=== PATIENT | male | born 1945 | race Caucasian/White ===

== ENCOUNTER 2017-11-08 18:54 | Emergency (ER) | payer MEDICARE, BC, OTHER ==
[2017-11-08] MEDS ORDERED: Ibuprofen 800 MG TAB ONE (19:18)
== END 2017-11-08 20:12 | disposition left against medical advice (07) ==
LOC: ERS 18:54
DX: Z53.21 Procedure and treatment not carried out due to patient leaving prior to being seen by health care provider (principal)
CPT/HCPCS: 93005

== ENCOUNTER 2017-11-09 10:20 | Emergency (ER) | payer MEDICARE, BC ==
[2017-11-09] MEDS ORDERED: Acetaminophen 500 MG TAB ONE (11:12)
--- NOTE | 2017-11-09 12:13 | RAD ---
PORTABLE CHEST 1 VIEW: DATE: 11/09/17. TIME: 11:37 a.m. HISTORY: Cough. FINDINGS: The heart size is prominent. The lungs are expanded without focal areas of consolidation, pneumothor ax, shelbi pulmonary edema, or pleural effusions. There are degenerative changes in the spine. IMPRESSION: Cardiomegaly. POS: JEROD
[2017-11-09 13:22] LABS: Hemoglobin 14.8 g/dL (14.0-18.0); Mean Corpuscular HGB CONC 33.4 g/dL (32.0-36.0); Mean Corpuscular Hemoglobin 31.7 pg (27.0-31.0); Platelet Count 42 thou/uL (130-400); RBC Distribution Width 11.9 % (11.5-14.5); Red Blood Cell (RBC) Count 4.66 mill/uL (4.70-6.10); White Blood Cell (WBC) Count 5.6 thou/uL (4.8-10.8)
[2017-11-09 13:29] LABS: Anion Gap 14 mmol/L (10-20); BUN (Urea Nitrogen) 36 mg/dL (8.4-25.7); Calc. Creatinine Clearance 0 mL/min (70-130); Calcium 8.8 mg/dL (7.8-10.44); Carbon Dioxide 19 mmol/L (23-31); Chloride 102 mmol/L (98-107); Estimated GFR-MDRD 50; Glucose 130 mg/dL (80-115); Potassium 4.1 mmol/L (3.5-5.1); Sodium 131 mmol/L (136-145)
[2017-11-09 13:33] LABS: CKMB 2.8 ng/mL (0-6.6); Troponin I 0.016 ng/mL (< 0.028)
[2017-11-09 13:41] LABS: Band 28 % (5-11); Dohle Bodies SLIGHT; Lymphocytes 6 % (21-51); MDiff Complete? YES; Monocytes 13 % (0-10); Neutrophil 46 % (42-75); PLT Morphology Comment Appears Decreased; RBC Morphology Normal; Reactive Lymphocytes 7 % (0-10); Toxic Granulation SLIGHT; Vacuoles SLIGHT
--- NOTE | 2017-11-14 15:33 | EKG ---
Test Reason : Blood Pressure : / mmHG Vent. Rate : 093 BPM Atrial Rate : 093 BPM P-R Int : 156 ms QRS Dur : 094 ms QT Int : 358 ms P-R-T Axes : 027 005 036 degrees QTc Int : 445 ms Normal sinus rhythm Normal ECG Confirmed by GERRY BETHEA ([id number]), book editor SHEILA FARIA ([id number]) on 11/14/2017 3:33:05 PM Referred By: Confirmed By:GERRY BETHEA
== END 2017-11-09 13:19 | disposition home or self-care (01) ==
LOC: ERS 10:20
DX: J11.1 Influenza due to unidentified influenza virus with other respiratory manifestations (principal); I10 Essential (primary) hypertension; E78.5 Hyperlipidemia, unspecified
CPT/HCPCS: 36415; 71045; 80048; 82553; 84484; 85025; 87804; 93005; 96360

== ENCOUNTER 2019-06-03 15:24 | Inpatient (IN) | payer MEDICARE, BC ==
[2019-06-03 18:06] VITALS: BMI 41.0
[2019-06-03] MEDS ORDERED: diphenhydrAMINE 25 MG CAP PO SCH (19:00)
[2019-06-03] MEDS ORDERED: Acetaminophen 500 MG TAB PO SCH (19:00)
[2019-06-03] MEDS ORDERED: Prevnar 13-Val Conj/PF 0.5 ML SYRINGE IM ONE (20:00)
[2019-06-03] MEDS ORDERED: Acetaminophen 325 MG TAB PO PRN (20:47)
[2019-06-03] MEDS ORDERED: Ondansetron PF 4 MG/2 ML Vial IVP PRN (20:47)
[2019-06-03] MEDS ORDERED: Ondansetron ODT 4 MG TAB PO PRN (20:47)
[2019-06-03] MEDS ORDERED: Dexamethasone 4 MG TAB PO SCH (21:15)
[2019-06-03] MEDS ORDERED: OCTAGAM IVPB SCH (21:30)
[2019-06-03] MEDS ORDERED: ADMIXTURE FEE IVPB SCH (21:30)
--- NOTE | 2019-06-04 02:53 | PDOC.FPRHP ---
- History of Present Illness Chief Complaint: Direct admit from [facility] for ITP History of Present Illness: 74 year old male with PMH HTN, HLD, Pre-diabetes presents from Dr. Donald's office due to low platelets. Platelets in the office were 2000. Patient reports that he started seeing Dr. Donald approximately 1 year ago when his platelets were first noted to be low. He claims that his history of H1N1 in 11/2017 contributed to the low platelets. He has also been on celebrex for his arthritis. He states that it is the only medication that works[place] [address] [place] he was sent to Dr. Donald. [place] [address] [place] any interventions. Patient desired to be back on celebrex for arthritis pain, so Dr. Donald agreed to let him start back on it with the understanding that if he developed any petechiae, the patient needed to notify Dr. Donald immediately. Patient states that he started back on the Celebrex 10 days ago. At appx 8:30 this morning, he noted petechiae on his left antecubital region. The petetchiae are now on both arms and legs. He called Dr. Donald's office and got an appt for today at which point his platelets were checked and noted to be severely low as indicated above. Dr. Donald requested patient be given IVIG 90 grams immediately after the first unit of platelets, followed by 2nd unit of platelets. Dexamethasone 40 mg PO qd x4 doses also to be given. CBC to be checked 3 hours after last transfusion, and then again 6 hours after that. If platelets drop back down, patient will stay in hospital for further management. - Allergies/Adverse Reactions Allergies Allergy/AdvReac Type Severity Reaction Status Date / Time acetaminophen [From Vicodin] Allergy Verified 06/03/19 18:43 hydrocodone [From Vicodin] Allergy Verified 06/03/19 18:43 - Home Medications Medication Instructions Recorded Confirmed Type Celecoxib 200 mg PO DAILY 06/03/19 06/03/19 History Lisinopril 5 mg PO DAILY 06/03/19 06/03/19 History Simvastatin [Zocor] 40 mg PO DAILY 06/03/19 06/03/19 History - History PMHx: HTN, HLD, Pre-diabetes, Hx H1N1, OA PSHx: Cholecystectomy FHx: No family history significant for bleeding disorders, maternal history of vascular dementia, sister with low ferritin Social: Patient denies tobacco or drug use. Patient endorses drinking years ago when he was in the [place]. - Review of Systems General: denies: fever/chills Eyes: denies: vision changes ENT: denies: nasal congestion, rhinorrhea Respiratory: denies: cough, congestion, shortness of breath Cardiovascular: denies: chest pain, palpitation, edema Gastrointestinal: denies: nausea, vomiting, diarrhea, abdominal pain Genitourinary: denies: dysuria Skin: reports: rashes, other (Petechiae) Musculoskeletal: denies: pain, tenderness Neurological: denies: numbness, syncope Psychological: denies: anxiety, depression - Vital signs BP: 112/58 HR: 74 RR: 16 Tmax: 98.2F Pox: 94% on RA Wt: 118.8 kg - Physical Exam Constitutional: NAD, awake, alert and oriented HEENT: EOMI, grossly normal vision, grossly normal hearing Heart: RRR, normal S1/S2 Lungs: CTAB, no respiratory distress Abdomen: soft, non-tender Musculoskeletal: normal structure, ROM grossly normal Neurological: no focal deficit Skin: capillary refill <2 seconds -Heme/Lymphatic: Petechiae present on right and left arms and bilateral LE's to level of mid calf Psychiatric: normal mood and affect FMR H&P: Results - Labs Result Diagrams: 06/04/19 11:38 FMR H&P: A/P - Problem List (1) Idiopathic thrombocytopenic purpura (ITP) Current Visit: Yes Status: Acute Code(s): D69.3 - IMMUNE THROMBOCYTOPENIC PURPURA (2) HLD (hyperlipidemia) Current Visit: Yes Status: Acute Code(s): E78.5 - HYPERLIPIDEMIA, UNSPECIFIED (3) HTN (hypertension) Current Visit: Yes Status: Acute Code(s): I10 - ESSENTIAL (PRIMARY) HYPERTENSION (4) Prediabetes Current Visit: Yes Status: Acute Code(s): R73.03 - PREDIABETES - Plan Thrombocytopenia likely 2/2 ITP - Direct admit from Dr. Donald's office - Celebrex stopped this AM (likely contributing factor as this has happened previously) - 90 g IVIG immediately after first unit of platelets, followed by 2nd unit of platelets - Dexamethasone 40 mg PO qd .4 days - CBC 3 hours after last transfusion, and platelets 6 hours after that - If platelets drop back down, patient to remain in hospital for further management - If platelets stable, then patient can be d/c'd tomorrow evening HTN - Continue home lisinopril HLD - Continue home medications OA - Tylenol as needed - Hold celebrex given ITP DVT PPX: Frequent ambulation Code status: Full Dispo: Admit to Oncology (on pediatrics for overflow purposes). Disposition/LOS: Leanne Croft, PGY-3 FMR H&P: Upper Level - Plan Date/Time: 06/04/19 [id number] I, [], have evaluated this patient and agree with findings/plan as outlined by administration intern resident. Pertinent changes/additions are listed here. Addendum - Attending - Attending Attestation Date/Time: 06/04/19 [id number] I personally evaluated the patient and discussed the management with Dr. Croft. I agree with the History, Examination, Assessment and Plan documented above with any addition or exceptions noted below. The patient was sent from Dr. Donald's office for admission for severe thrombocytopenia. This is thought to be from ITP from celebrex use. Pt noticed petechia after restarting celebrex about a week prior. He has received IVIG, Platelets and steroids. Will check CBC and then recheck CBC 6 hours later to see if platelet level is stable.
[2019-06-04] MEDS ORDERED: Atorvastatin Calcium 20 MG TAB PO SCH (09:00)
[2019-06-04] MEDS ORDERED: Lisinopril 5 MG TAB PO SCH (09:00)
[2019-06-04 11:51] LABS: #Lymphocytes 0.8 thou/uL (1.20-3.40); #Monocytes 0.1 thou/uL (0.11-0.59); #Neutrophils 4.7 thou/uL (1.40-6.50); %Basophils 0.4 % (0.0-1.0); %Eosinophils 0.2 % (0.0-10.0); %Lymphocytes 14.3 % (21.0-51.0); %Monocytes 2.1 % (0.0-10.0); Hemoglobin 14.2 g/dL (14.0-18.0); Mean Corpuscular HGB CONC 35.7 g/dL (32.0-36.0); Mean Corpuscular Hemoglobin 32.6 pg (27.0-31.0); Mean Corpuscular Volume 91.2 fL (78.0-98.0); Mean Platelet Volume 8.6 fL (7.4-10.4); Platelet Count 50 thou/uL (130-400); Red Blood Cell (RBC) Count 4.37 mill/uL (4.70-6.10); White Blood Cell (WBC) Count 5.6 thou/uL (4.8-10.8)
[2019-06-04 16:49] VITALS: BP 123/62; TEMP 98.4
[2019-06-04 18:07] LABS: #Monocytes 0.5 thou/uL (0.11-0.59); #Neutrophils 6.8 thou/uL (1.40-6.50); %Basophils 0.3 % (0.0-1.0); %Eosinophils 0.1 % (0.0-10.0); %Lymphocytes 11.6 % (21.0-51.0); %Neutrophils 82.1 % (42.0-75.0); Hemoglobin 14.2 g/dL (14.0-18.0); Mean Corpuscular HGB CONC 35.5 g/dL (32.0-36.0); Mean Corpuscular Hemoglobin 32.6 pg (27.0-31.0); Mean Corpuscular Volume 91.7 fL (78.0-98.0); Mean Platelet Volume 9.2 fL (7.4-10.4); Platelet Count 48 thou/uL (130-400); Red Blood Cell (RBC) Count 4.37 mill/uL (4.70-6.10); White Blood Cell (WBC) Count 8.3 thou/uL (4.8-10.8)
== END 2019-06-04 18:36 | disposition home or self-care (01) | DRG 813 ==
LOC: OBSVTOIN 17:34 → 3SE 17:34 → INTOOBSV 17:34
PROVIDERS: ADMIT Family Medicine; ATTEND Family Medicine
PROC: 30233R1 Transfusion of Nonautologous Platelets into Peripheral Vein, Percutaneous Approach (ICD-10-PCS; principal; 2019-06-03)
PROC: 3E0234Z Introduction of Serum, Toxoid and Vaccine into Muscle, Percutaneous Approach (ICD-10-PCS; 2019-06-03)
DX: D69.3 Immune thrombocytopenic purpura (principal); I10 Essential (primary) hypertension; E78.5 Hyperlipidemia, unspecified; M19.90 Unspecified osteoarthritis, unspecified site; R73.03 Prediabetes; Z88.8 Allergy status to other drugs, medicaments and biological substances; Z90.49 Acquired absence of other specified parts of digestive tract; Z23 Encounter for immunization
CPT/HCPCS: 36415; 36416; 36430; 85025; 86850; 86860; 86870; 86880; 86900; 86901; 86905; 86970; 86978; 90471; 90670; G0009; J1568; J8540; P9035; Q0163

== ENCOUNTER 2022-12-14 18:17 | Observation (INO) | payer MEDICARE, BC ==
[2022-12-14 19:51] LABS: #Lymphocytes 1.3 thou/uL (1.20-3.40); #Monocytes 1.1 thou/uL (0.11-0.59); #Neutrophils 6.7 thou/uL (1.40-6.50); %Basophils 0.2 % (0.0-1.0); %Eosinophils 0.4 % (0.0-10.0); %Lymphocytes 13.8 % (21.0-51.0); %Neutrophils 73.6 % (42.0-75.0); Hemoglobin 15.8 g/dL (14.0-18.0); Mean Corpuscular HGB CONC 35.3 g/dL (32.0-36.0); Mean Corpuscular Hemoglobin 32.6 pg (27.0-31.0); Mean Corpuscular Volume 92.3 fl (78.0-98.0); Mean Platelet Volume 8.5 fL (7.4-10.4); Platelet Count 61 10x3/uL (130-400); RBC Distribution Width 11.7 % (11.5-14.5); Red Blood Cell (RBC) Count 4.83 mill/uL (4.70-6.10); White Blood Cell (WBC) Count 9.1 10x3/uL (4.8-10.8)
[2022-12-14] MEDS ORDERED: Dicyclomine 20 MG TAB ONE (20:10)
[2022-12-14 20:11] LABS: ALT (SGPT) 27 U/L (8-55); AST (SGOT) 24 U/L (5-34); Albumin 4.1 g/dL (3.4-4.8); Alkaline Phosphatase 45 U/L (40-110); Anion Gap 15 mmol/L (10-20); BUN (Urea Nitrogen) 14 mg/dL (8.4-25.7); Bilirubin, Total 0.9 mg/dL (0.2-1.2); Calc. Creatinine Clearance 0 mL/min (70-130); Calcium 9.4 mg/dL (7.8-10.44); Carbon Dioxide 21 mmol/L (23-31); Chloride 98 mmol/L (98-107); Estimated GFR 87; Globulin 2.7 g/dL (2.4-3.5); Glucose 116 mg/dL (83-110); Lipase 17 U/L (8-78); Potassium 3.9 mmol/L (3.5-5.1); Protein, Total 6.8 g/dL (5.8-8.1); Sodium 130 mmol/L (136-145)
[2022-12-15] MEDS ORDERED: Ondansetron PF 4 MG/2 ML Vial ONE (01:49)
[2022-12-15] MEDS ORDERED: Ondansetron PF 4 MG/2 ML Vial IVP PRN (03:32)
[2022-12-15] MEDS ORDERED: Lactated Ringer's 1,000 ML IV SCH (05:00)
[2022-12-15 05:22] LABS: #Lymphocytes 1.1 thou/uL (1.20-3.40); #Monocytes 1.1 thou/uL (0.11-0.59); #Neutrophils 6.7 thou/uL (1.40-6.50); %Basophils 0.5 % (0.0-1.0); %Eosinophils 0.4 % (0.0-10.0); %Monocytes 12.6 % (0.0-10.0); %Neutrophils 74.4 % (42.0-75.0); Mean Corpuscular HGB CONC 34.9 g/dL (32.0-36.0); Mean Corpuscular Hemoglobin 32.8 pg (27.0-31.0); Mean Platelet Volume 8.3 fL (7.4-10.4); Platelet Count 65 10x3/uL (130-400); RBC Distribution Width 11.9 % (11.5-14.5); Red Blood Cell (RBC) Count 4.57 mill/uL (4.70-6.10); White Blood Cell (WBC) Count 8.9 10x3/uL (4.8-10.8)
[2022-12-15 05:30] LABS: Lactic Acid 1.5 mmol/L (0.5-2.2)
[2022-12-15 05:37] LABS: Anion Gap 14 mmol/L (10-20); BUN (Urea Nitrogen) 12 mg/dL (8.4-25.7); Calc. Creatinine Clearance 0 mL/min (70-130); Calcium 8.7 mg/dL (7.8-10.44); Carbon Dioxide 21 mmol/L (23-31); Chloride 105 mmol/L (98-107); Estimated GFR 91; Glucose 114 mg/dL (83-110); Potassium 3.8 mmol/L (3.5-5.1); Sodium 136 mmol/L (136-145)
[2022-12-15] MEDS ORDERED: Polyethylene Glycol 3350 17 GM Packet PO SCH (09:00)
[2022-12-15] MEDS: Lisinopril 5 MG TAB PO SCH (10:11)
[2022-12-15 15:36] VITALS: BMI 36.5
[2022-12-15] MEDS ORDERED: Atorvastatin Calcium 10 MG TAB PO SCH (21:00)
[2022-12-16 05:58] LABS: #Eosinphils 0.2 thou/uL (0.0-0.7); #Lymphocytes 1.4 thou/uL (1.20-3.40); #Monocytes 1.1 thou/uL (0.11-0.59); #Neutrophils 5.3 thou/uL (1.40-6.50); %Basophils 0.2 % (0.0-1.0); %Eosinophils 2.7 % (0.0-10.0); %Lymphocytes 17.9 % (21.0-51.0); %Monocytes 13.3 % (0.0-10.0); %Neutrophils 65.9 % (42.0-75.0); Hemoglobin 15.6 g/dL (14.0-18.0); Mean Corpuscular HGB CONC 33.9 g/dL (32.0-36.0); Mean Corpuscular Hemoglobin 32.2 pg (27.0-31.0); Mean Corpuscular Volume 94.9 fl (78.0-98.0); Mean Platelet Volume 8.3 fL (7.4-10.4); Platelet Count 74 10x3/uL (130-400); RBC Distribution Width 12.2 % (11.5-14.5); Red Blood Cell (RBC) Count 4.86 mill/uL (4.70-6.10)
[2022-12-16 06:22] LABS: ALT (SGPT) 23 U/L (8-55); AST (SGOT) 35 U/L (5-34); Albumin 4.2 g/dL (3.4-4.8); Alkaline Phosphatase 47 U/L (40-110); Anion Gap 13 mmol/L (10-20); BUN (Urea Nitrogen) 13 mg/dL (8.4-25.7); Bilirubin, Total 0.8 mg/dL (0.2-1.2); Calc. Creatinine Clearance 105 mL/min (70-130); Calcium 9.4 mg/dL (7.8-10.44); Carbon Dioxide 24 mmol/L (23-31); Chloride 105 mmol/L (98-107); Estimated GFR 85; Globulin 2.7 g/dL (2.4-3.5); Glucose 101 mg/dL (83-110); Potassium 3.7 mmol/L (3.5-5.1); Protein, Total 6.9 g/dL (5.8-8.1); Sodium 138 mmol/L (136-145)
[2022-12-16 07:54] VITALS: BP 125/58; TEMP 98
[2022-12-16] MEDS: Lisinopril 5 MG TAB PO SCH (08:25)
== END 2022-12-16 08:55 | disposition home or self-care (01) ==
LOC: ERS 18:17 → ERHOLD 12-15 03:32 → MSONC 12-15 13:06
PROVIDERS: ADMIT Family Medicine; ATTEND Family Medicine
DX: K59.00 Constipation, unspecified (principal); M17.0 Bilateral primary osteoarthritis of knee; I10 Essential (primary) hypertension; E78.5 Hyperlipidemia, unspecified; D69.6 Thrombocytopenia, unspecified; E87.20 Acidosis, unspecified; E86.0 Dehydration; F03.90 Unspecified dementia, unspecified severity, without behavioral disturbance, psychotic disturbance, mood disturbance, and anxiety; E66.9 Obesity, unspecified; Z68.36 Body mass index [BMI] 36.0-36.9, adult; Z79.899 Other long term (current) drug therapy; Z88.5 Allergy status to narcotic agent; Z88.6 Allergy status to analgesic agent
CPT/HCPCS: 74177; 80048; 80053 ×2; 83605 ×2; 83690; 85025 ×3; 93005; G0378 ×3; 36415; 96361; 96374; J2405

== ENCOUNTER 2024-01-29 23:25 | Emergency (ER) | payer MEDICARE, BC ==
[2024-01-30 00:02] LABS: Hematocrit 38.9 % (42.0-52.0); Hemoglobin 13.3 g/dL (14.0-18.0); Mean Corpuscular HGB CONC 34.2 g/dL (32.0-36.0); Mean Corpuscular Hemoglobin 30.9 pg (27.0-31.0); Mean Corpuscular Volume 90.5 fL (78.0-98.0); Mean Platelet Volume 9.8 fL (7.4-10.4); Platelet Count 80 10x3/uL (130-400); RBC Distribution Width 14.7 % (11.5-14.5)
[2024-01-30 00:29] LABS: Band 4 % (5-11); Eosinophils 1 % (0-10); Lymphocytes 24 % (21-51); Monocytes 10 % (0-10); Neutrophil 42 % (42-75); Platelet Adequacy Comment Platelets Decreased; RBC Morphology Within Normal Limits; Reactive Lymphocytes 19 % (0-10)
[2024-01-30 00:45] LABS: ALT (SGPT) 12 U/L (8-55); AST (SGOT) 19 U/L (5-34); Albumin 3.4 g/dL (3.4-4.8); Alkaline Phosphatase 54 U/L (40-110); Anion Gap 12 mmol/L (10-20); BUN (Urea Nitrogen) 15 mg/dL (8.4-25.7); Bilirubin, Total 0.4 mg/dL (0.2-1.2); Calc. Creatinine Clearance 0 mL/min (70-130); Calcium 8.2 mg/dL (7.8-10.44); Carbon Dioxide 24 mmol/L (23-31); Chloride 105 mmol/L (98-107); Estimated GFR 72; Globulin 1.7 g/dL (2.4-3.5); Glucose 119 mg/dL (83-110); Protein, Total 5.1 g/dL (5.8-8.1); Sodium 137 mmol/L (136-145)
[2024-01-30 00:59] LABS: Bacteria/HPF None Seen HPF (None Seen); Bilirubin Negative (Negative); Blood, Urine Negative (Negative); CAUTI Indications for Culture Pelvic or flank pain; Clarity Clear (Clear); Glucose, Urine (Dipstick) Normal (Negative); Ketone, Urine Negative (Negative); Leukocyte Negative Leu/uL (Negative); Nitrite Negative (Negative); Protein, Urine (Dipstick) Negative (Neg-Trace); RBC/HPF 0-3 HPF (0-3); Specific Gravity, Urine 1.021 (1.002-1.036); Squamous Epithelial 0-3 HPF (0-3); Urobilinogen Normal mg/dL (Less than 2); WBC/HPF 0-3 HPF (0-3)
[2024-01-30 01:05] LABS: Urine Culture Reflex No No
[2024-01-30] MEDS ORDERED: Acetaminophen 500 MG TAB ONE (02:13)
== END 2024-01-30 05:36 | disposition home or self-care (01) ==
LOC: ERS 23:25
DX: F03.90 Unspecified dementia, unspecified severity, without behavioral disturbance, psychotic disturbance, mood disturbance, and anxiety (principal); R53.1 Weakness; G89.18 Other acute postprocedural pain; I10 Essential (primary) hypertension; E78.5 Hyperlipidemia, unspecified; D69.6 Thrombocytopenia, unspecified; M19.90 Unspecified osteoarthritis, unspecified site; W19.XXXA Unspecified fall, initial encounter
CPT/HCPCS: 36415; 71045; 80053; 81001; 85025; 88305; 88331; 88332; 93005; C1889; J0171; J0665; J2405; J2704; J3010; J3490; S0028